=== PATIENT | male | born 1975 | race Caucasian/White ===

== ENCOUNTER 2022-08-20 13:44 | Emergency (ER) | payer OTHER | END 2022-08-20 13:56 | disposition left against medical advice (07) | LOC: EDH 13:44 | DX: R68.89 Other general symptoms and signs (principal); Z53.21 Procedure and treatment not carried out due to patient leaving prior to being seen by health care provider ==

== ENCOUNTER 2022-09-04 14:05 | Inpatient (IN) | payer BC ==
[~2022-09-04] VITALS: Ht 172.7 cm; Wt 77.1 kg
[2022-09-04 15:05] LABS: MEAN CORPUSCULAR HEMOGLOBIN 35.6 pg (27.0-33.0); MEAN CORPUSCULAR HGB CONC 34.7 g/dL (32.0-36.0); MEAN CORPUSCULAR VOLUME 102.6 fL (79-99); RED BLOOD CELL COUNT(AUTO) 4.19 MIL/uL (4.50-6.20); RED CELL DISTRIBUTION WIDTH 13.7 % (11.0-15.5); WHITE BLOOD COUNT (AUTO) 7.9 K/uL (4.8-10.8)
[2022-09-04 15:14] LABS: CREATININE 0.9 mg/dL (0.5-1.5); POTASSIUM 3.6 mmol/L (3.5-5.1)
[2022-09-04 15:19] LABS: ALBUMIN 4.1 g/dL (3.5-5.0); TOTAL PROTEIN, SERUM 8.3 g/dL (6.0-8.3)
[2022-09-04] MEDS ORDERED: 0.9%NACL 1000ML 1,000 ML IV ONE ×2 (16:00→16:30)
[2022-09-04] MEDS ORDERED: DIAZEPAM 5 MG TABLET PO ONE (16:00)
[2022-09-04 16:19] LABS: APPEARANCE,URINE CLEAR (CLEAR); BILIRUBIN,URINE NEGATIVE (NEGATIVE); COLOR,URINE YELLOW (YELLOW); GLUCOSE, URINE (UA) NEGATIVE (NEGATIVE); KETONES,URINE NEGATIVE (NEGATIVE); LEUKOCYTE ESTERASE ,URINE NEGATIVE Leu/uL (NEGATIVE); NITRATE,URINE NEGATIVE (NEGATIVE); OCCULT BLOOD,URINE NEGATIVE (NEGATIVE); PH,URINE 5.5 (5.0-8.0); PROTEIN,URINE 50 mg/dL (NEGATIVE); UROBILINOGEN,URINE 0.2 mg/dL (0.2-1.0)
[2022-09-04 16:22] LABS: LIPASE 163 U/L (114-286)
[2022-09-04 16:23] LABS: ALCOHOL, BLOOD 322 mg/dL (0-10)
[2022-09-04 16:26] LABS: MUCUS,URINE RARE LPF (None Seen); RBC,URINE 0-1 /HPF (0-1); WBC,URINE 0-1 /HPF (0-1)
[2022-09-04 16:27] LABS: AMPHET/METH SCREEN,URINE NEGATIVE (NEGATIVE); BARBITURATE SCREEN, URINE NEGATIVE (NEGATIVE); BENZODIAZEPINES SCREEN,URINE NEGATIVE (NEGATIVE); CANNABINOID SCREEN,URINE POSITIVE (NEGATIVE); COCAINE SCREEN,URINE NEGATIVE (NEGATIVE); OPIATE SCREEN,URINE NEGATIVE (NEGATIVE); PHENCYCLIDINE SCREEN,URINE NEGATIVE (NEGATIVE)
[2022-09-04] MEDS ORDERED: FOLIC ACID 1 MG, THIAMINE HCL 100 MG in 0.9%NACL 1000ML 1,000 ML IV SCH (17:00)
[2022-09-04] MEDS: PANTOPRAZOLE 40 MG/VIAL IVP SCH (17:30)
[2022-09-04] MEDS ORDERED: THIAMINE HCL 100 MG/ML 2ML VIAL IVP ONE (17:30)
[2022-09-04] MEDS ORDERED: CEFTRIAXONE 1G VIAL IVP SCH (17:30)
[2022-09-04] MEDS ORDERED: FOLIC ACID 1 MG TABLET PO SCH (17:30)
[2022-09-04 17:58] LABS: INR 0.93 (0.85-1.15); PROTHROMBIN TIME 9.6 SEC (9.6-11.6)
[2022-09-04 17:59] LABS: PARTIAL THROMBOPLASTIN TIME 27.2 SEC (26.3-35.5)
[2022-09-04] MEDS ORDERED: PHARMACY COMMUNICATION MISC PRN (18:00)
[2022-09-04] MEDS ORDERED: CHLORDIAZEPOXIDE HCL 25 MG CAP PO PRN (18:00)
[2022-09-04] MEDS ORDERED: LORAZEPAM 2 MG/ML 1 ML VIAL IVP PRN (18:00)
[2022-09-04] MEDS ORDERED: NICOTINE 14 MG/ 24 HR PATCH TD SCH (18:00)
[2022-09-04] MEDS ORDERED: ONDANSETRON 4MG INJ IV PRN (18:00)
[2022-09-04] MEDS ORDERED: OCTREOTIDE ACETATE 1,250 MCG in 0.9% NACL 250ML 250 ML IV SCH (18:00)
[2022-09-04] MEDS: CHLORDIAZEPOXIDE HCL 25 MG CAP PO SCH (18:00)
[2022-09-04] MEDS ORDERED: IPRATROPIUM 0.5 MG/2.5 ML INH IH PRN (18:00)
[2022-09-04 18:09] LABS: MAGNESIUM 1.6 mg/dL (1.80-2.40); THYROID STIMULATING HORMONE 0.69 uIU/mL (0.36-3.74)
[2022-09-04] MEDS ORDERED: OCTREOTIDE ACETATE 100 MCG/ML AMP IV ONE (18:30)
[2022-09-04] MEDS: BUDESONIDE 0.5 MG/2 ML INH IH SCH (18:37)
[2022-09-04] MEDS ORDERED: MAGNESIUM 2GM PREMIX 50ML 50 ML IV SCH (19:00)
[2022-09-04 20:23] LABS: HEMATOCRIT 40.3 % (42-54)
[2022-09-05] VITALS (8 sets, daily range): BP systolic 122–159; BP diastolic 77–96
[2022-09-05 01:17] LABS: HEMATOCRIT 38.4 % (42-54)
[2022-09-05] MEDS: CHLORDIAZEPOXIDE HCL 25 MG CAP PO SCH ×2 (02:13→08:34)
[2022-09-05] MEDS: PANTOPRAZOLE 40 MG/VIAL IVP SCH (05:18)
[2022-09-05 05:50] LABS: BASOPHILS % (AUTO) 1.2 % (0.0-5.0); EOSINOPHILS % (AUTO) 3.6 % (0.0-8.0); HEMATOCRIT 38.8 % (42-54); LYMPHOCYTES % (AUTO) 32.6 % (21.0-51.0); MEAN CORPUSCULAR HEMOGLOBIN 35.4 pg (27.0-33.0); MONOCYTES % (AUTO) 9.6 % (3.0-13.0); NEUTROPHILS % (AUTO) 52.2 % (40.0-77.0); PLATELET COUNT (AUTO) 156 K/uL (130-400); RED BLOOD CELL COUNT(AUTO) 3.73 MIL/uL (4.50-6.20); RED CELL DISTRIBUTION WIDTH 13.6 % (11.0-15.5)
[2022-09-05 05:59] LABS: ALBUMIN 3.3 g/dL (3.5-5.0); CREATININE 0.8 mg/dL (0.5-1.5); POTASSIUM 4.4 mmol/L (3.5-5.1); TOTAL PROTEIN, SERUM 6.8 g/dL (6.0-8.3)
[2022-09-05] MEDS: BUDESONIDE 0.5 MG/2 ML INH IH SCH (07:13)
[2022-09-05] MEDS ORDERED: THIAMINE HCL 100 MG/ML 2ML VIAL IVP SCH (09:00)
[2022-09-05] MEDS ORDERED: FOLIC ACID 1 MG TABLET PO SCH (09:00)
[2022-09-05] MEDS ORDERED: FOLIC ACID 1 MG, THIAMINE HCL 100 MG in 0.9%NACL 1000ML 1,000 ML IV SCH (09:00)
[2022-09-05] MEDS ORDERED: 0.9%NACL 1000ML 1,000 ML IV ONE (11:01)
[2022-09-05] MEDS ORDERED: PROPOFOL 10 MG/ML 20ML VIAL IV ONE ×2 (12:29→12:37)
[2022-09-05] MEDS ORDERED: LIDOCAINE PF 100MG/5ML (2%) SYRINGE 5ML ONE (12:29)
[2022-09-05 13:40] LABS: HEMATOCRIT 40.7 % (42-54)
[2022-09-06] MEDS ORDERED: PANTOPRAZOLE 40 MG/VIAL IVP SCH (09:00)
== END 2022-09-05 14:05 | disposition left against medical advice (07) | DRG 432 ==
LOC: EDH 14:05 → EDHIP 17:40
PROVIDERS: ADMIT Hospitalist; ATTEND Hospitalist
DX: K70.10 Alcoholic hepatitis without ascites (principal); E43 Unspecified severe protein-calorie malnutrition; K27.4 Chronic or unspecified peptic ulcer, site unspecified, with hemorrhage; I85.11 Secondary esophageal varices with bleeding; D62 Acute posthemorrhagic anemia; F10.239 Alcohol dependence with withdrawal, unspecified; E83.42 Hypomagnesemia; E86.0 Dehydration; E86.1 Hypovolemia; F10.229 Alcohol dependence with intoxication, unspecified; F17.210 Nicotine dependence, cigarettes, uncomplicated; I10 Essential (primary) hypertension; J44.9 Chronic obstructive pulmonary disease, unspecified; K59.09 Other constipation; K74.60 Unspecified cirrhosis of liver; K76.0 Fatty (change of) liver, not elsewhere classified; Z53.29 Procedure and treatment not carried out because of patient's decision for other reasons; Z59.00 Homelessness unspecified; Z85.819 Personal history of malignant neoplasm of unspecified site of lip, oral cavity, and pharynx; Z85.828 Personal history of other malignant neoplasm of skin; Z68.25 Body mass index [BMI] 25.0-25.9, adult
CPT/HCPCS: 36415; 43239; 70450; 71045; 74176; 80053; 80305; 81001; 82140; 82550; 82607; 82746; 83690; 83735; 84443; 85014; 85018; 85025; 85027; 85610; 85730; 87426; 94640; 94664; 99291; C9113; G0378; J0696; J2001; J2060; J2354; J2405; J2704; J3411; J3475; J3490; J7030; J7050